=== PATIENT | male | born 2000 | race Caucasian/White ===

== ENCOUNTER 2020-02-15 21:10 | Emergency (ER) | payer OTHER ==
[~2020-02-15] VITALS: Ht 172.7 cm; Wt 90.7 kg
[2020-02-15 21:19] VITALS: BP 133/81
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
[2020-02-15] MEDS ORDERED: IBUPROFEN600 M1 ORAL (21:33)
[2020-02-15 21:41] VITALS: BP 128/76
--- NOTE | 2020-02-15 21:41 | NUR ---
ER DISCHARGE NOTE: Patient is cleared to be discharged per ERMD, pt is aox4, on room air, with stable vital signs. pt was given dc paperwork and paper prescriptions, pt was able to verbalize understanding, pt id band removed . pt is able to ambulate with steady gait. pt took all belongings.
== END 2020-02-15 21:41 | disposition home or self-care (01) ==
LOC: EMR 21:20
DX: S13.4XXA Sprain of ligaments of cervical spine, initial encounter (principal); V43.52XA Car driver injured in collision with other type car in traffic accident, initial encounter; Y92.411 Interstate highway as the place of occurrence of the external cause; Z88.1 Allergy status to other antibiotic agents; Z88.0 Allergy status to penicillin
CPT/HCPCS: 99282